=== PATIENT | female | born 1985 | race Caucasian/White ===

== ENCOUNTER 2021-04-18 13:46 | Emergency (ER) | payer OTHER ==
[~2021-04-18] VITALS: Ht 167.6 cm; Wt 79.4 kg
== END 2021-04-18 17:43 | disposition home or self-care (01) ==
LOC: ER 13:46
DX: S91.125A Laceration with foreign body of left lesser toe(s) without damage to nail, initial encounter (principal); W26.8XXA Contact with other sharp object(s), not elsewhere classified, initial encounter; Y93.89 Activity, other specified; Y92.89 Other specified places as the place of occurrence of the external cause; Y99.8 Other external cause status

== ENCOUNTER 2021-04-26 10:24 | Emergency (ER) | payer OTHER ==
[~2021-04-26] VITALS: Ht 167.6 cm; Wt 74.8 kg
== END 2021-04-26 11:20 | disposition home or self-care (01) ==
LOC: ER 10:24
DX: Z48.02 Encounter for removal of sutures (principal)